=== PATIENT | male | born 1980 | race African-American/Black ===

== ENCOUNTER 2019-02-03 01:59 | Emergency (ER) | payer MEDICAID ==
[~2019-02-03] VITALS: Ht 185.4 cm; Wt 117.9 kg
[2019-02-03] MEDS ORDERED: NACL 0.9% 1,000 ML IV ONE (02:11)
[2019-02-03 02:12] VITALS: BP 115/82
[2019-02-03] MEDS ORDERED: methylPREDNISolone SS 125 MG in WATER STERILE 2 ML IVP ONE (02:15)
[2019-02-03] MEDS ORDERED: diphenhydrAMINE 50 MG/ML VIAL IVP ONE (02:15)
[2019-02-03] MEDS ORDERED: FAMOTIDINE 20 MG/2 ML VIAL IVP ONE (02:15)
--- NOTE | 2019-02-03 02:18 | NUR ---
PATIENT HOOKED UP TO MONITOR. GIVEN CALL LIGHT. BED IN LOW LOCKED POSITION. SITTING UP IN BED. WILL MONITOR CLOSELY.
[2019-02-03] MEDS ORDERED: EPINEPHrine 1:1000 - 1 MG/ML AMP SUBQ ONE (02:25)
--- NOTE | 2019-02-03 02:25 | NUR ---
IV STARTED WITHOUT DIFFICULTY. MEDICATIONS ADMINISTERED ORDERED. NO CHANGE IN SWELLING OF TONGUE. STILL NOT RESP DISTRESS REPORTED OR OBSERVED. WILL MONITOR CLOSELY
--- NOTE | 2019-02-03 02:49 | NUR ---
PATIENT GIVEN BLANKET. STATES NO CHANGES IN BREATHING. TONGUE APPEARS THE SAME AT TIME OF FIRST ASSESSMENT. NO RESP DISTRESS NOTED.
--- NOTE | 2019-02-03 03:26 | NUR ---
PATIENT RESTING IN BED. STATES HE FEEL LIKE HIS SWELLING IS GOING DOWN. NO DISTRESS AT THIS TIME.
--- NOTE | 2019-02-03 04:05 | NUR ---
PATIENT STATES THE SWELLING HAS DECREASED. OBSERVED TONGUE SWELLING TO BE LESS THAN AT TIME OF ARRIVAL.
--- NOTE | 2019-02-03 04:08 | NUR ---
Dr. Cifuentes examining patient.
--- NOTE | 2019-02-03 05:00 | NUR ---
patient sleeping. easily arrousable. swelling in tongue continuing to go down.
[2019-02-03 05:45] VITALS: BP 118/74
--- NOTE | 2019-02-03 05:45 | NUR ---
Patient discharged with v/s stable. Written and verbal after care instructions given and explained. Patient alert, oriented and verbalized understanding of instructions. Ambulatory with steady gait. All questions addressed prior to discharge. ID band removed. Patient advised to follow up with PMD. Rx of diphenhyramine, epipen, prednisone, pepcid given. IV discontinued. Patient educated on indication of medication including possible reaction and side effects. Opportunity to ask questions provided and answered.
== END 2019-02-03 05:45 | disposition home or self-care (01) ==
LOC: MED 01:59
DX: T78.3XXA Angioneurotic edema, initial encounter (principal); X58.XXXA Exposure to other specified factors, initial encounter
CPT/HCPCS: 36415; 86886; 86900; 86901; 96372; 96374; 96375; 99283; J0171; J1200; J2930; J3490